=== PATIENT | female | born 1985 | race Caucasian/White ===

== ENCOUNTER 2017-04-24 11:00 | Emergency (ER) | payer BC ==
[2017-04-24 12:31] VITALS: BP 107/75
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
== END 2017-04-24 13:05 | disposition home or self-care (01) ==
LOC: DL.ED 11:00
DX: S06.0X0A Concussion without loss of consciousness, initial encounter (principal); S04.51XA Injury of facial nerve, right side, initial encounter; S90.31XA Contusion of right foot, initial encounter; S00.03XA Contusion of scalp, initial encounter; G43.909 Migraine, unspecified, not intractable, without status migrainosus; Z88.1 Allergy status to other antibiotic agents; Z79.899 Other long term (current) drug therapy; W22.8XXA Striking against or struck by other objects, initial encounter
CPT/HCPCS: 70450; 81025; 99284